=== PATIENT | female | born 1965 | race Caucasian/White ===

== ENCOUNTER → 2017-05-29 | Outpatient (CLI) | payer MEDICAID ==
[2013-12-12 17:22] VITALS: BMI 30.4
[~2017-05-29] MED LIST: ABILIF5PT PO; ACE3 PO; ACET-1718 PO; ACET-1966 PO; ACET-3017 PO; ACETAMINOPHEN PO; ALB0.5 IH; ALB18R IH; ALB18R INH; ALBU2.5V36 IH; ALBU8.5H IH; ALL300 PO; ALP5; ALPR-429 PO; ALPR-434 PO; ALPR-460 PO; AMIT-108 PO; ASPI-1403 PO; ASPI-715 PO; AZIT-1 PO; AZIT500T47 PO; BACL-1 PO; BLOO-1318 MC; BUDE10.25 IH; BUPR-127 PO; BUSP10TA95; BUSP30TA18 PO; BUSP7.5T7 PO; CAR6.25 PO; CARI-327 PO; CARV12.578 PO; CARV25TA77 PO; CARV25TA78 PO; CELE100C79 PO; CEPH500C24 PO; CLAR-13 PO; CLO5 PO; CLO75 PO; CLON-1 PO; CLOP75TA PO; CLOP75TA43 PO; CLOT15CR62 TP; CODE118S5 PO; CYAN20004 PO; CYC10 PO; CYCL-277 PO; CYCL10TA29 PO; DEXILENT; DEXLAN60PT PO; DIA5 PO; DIAZ-308 PO; DICY-42 PO; DICY10CA11 PO; DIPHENHYDRAMINE PO; DOXY-179 PO; DOXY-181 PO; DULO60CA56 PO; ESCI10TA8 PO; ESCI20TA38 PO; EZE10 PO; FERR325T24 PO; FLU45SYR17 IM; FLUC100T39 PO; FLUC150T40 PO; FLUT1DIS28 IH; FLUT9.9S; FURO-45 PO; FURO-47 PO; GABA-490 PO; GLUC-232 PO; HYDR-317; HYDR-319; HYDR-385 PO; HYDR-389 PO; HYDR-393 PO; HYDR-4225 PO; HYDR-4308 PO; HYDR-4309 PO; HYDR25CA13 PO; HYDR2TAB4 PO; HYDR2TAB74 PO; HYDR50CA47 PO; HYDR50CA48 PO; HYOS0.128 PO; IBU800 PO; IPRA3AMP21 IH; ISOS30TA51 PO; ISOS30TA54 PO; ISOS30TA71 PO; KET10 PO; LANC-1149 MC; LANS30CA70 PO; LID5T TP; LIDO10VI16 INTRA-ART; LIDO700A29 TD; LOR05 PO; LOR5 PO; LOR5/325 PO; LORA-1455 PO; LORA-630 PO; LOSA100T67 PO; LOSA25TA50 PO; LOSA50TA68 PO; LOSA50TA72 PO; LOSARTIN PO; MELO-149 PO; METH-542 PO; METH4TAB66 PO; METR-1 PO; MOXI400T28 PO; MULT-768 PO; MULT-885 PO; MULT1CAP59 PO; NAPR500T75 PO; NIT100 PO; NIT3 PO; NITR0.4T3 SL; NYST100040 PO; NYST15PO4 TP; OMEP-137 PO; ONDA4TAB PO; ONDA8TAB98 PO; ORP100 PO; OXYC-823 PO; OXYC-857 PO; OXYC-865 PO; PARO-242 PO; PARO-243 PO; PARO30TA71 PO; PER PO; PHEN240S3 PO; PIO15 PO; PRA20 PO; PRED-1 PO; PRED1TAB17 PO; PRED20TA6 PO; PROAIRPT; PROM-110 PO; QUET25TA30 PO; QUET25TA31; QUET50TA PO; QUET50TA21 PO; ROSU5TAB8 PO; SCOT TD; SERT25TA87 PO; SPIR25TA76 PO; SPIR25TA78 PO; SULF-198 PO; TRA50 PO; TRAM-420 PO; TRAM-627 PO; TRAZ-156 PO; TRAZ-163 PO; TRAZ150T8 PO; TRAZ300T17 PO; TRI40I IART; TRILEPTAL; Tylenol Arthritis PO; [UNRECOGNIZED DRUG - CODE] MC; [UNRECOGNIZED DRUG - CODE] PO; [UNRECOGNIZED DRUG - CODE] PO; [UNRECOGNIZED DRUG - CODE] TP
[2017-05-29 09:42] LABS: LDL CHOLESTEROL 146 mg/dl
== END ==
LOC: LAB 08:20
PROVIDERS: ATTEND Nurse Practitioner Pediatrics
DX: F41.1 Generalized anxiety disorder (principal)
CPT/HCPCS: 36415; 82040; 82247; 82248; 82306; 82310; 82374; 82435; 82465; 82565; 82947; 83036; 83718; 84075; 84132; 84146; 84155; 84295; 84450; 84460; 84478; 84520; 85027

== ENCOUNTER 2017-06-25 18:10 | Emergency (ER) | payer MEDICAID ==
[2013-12-12 17:22] VITALS: Wt 89.4 kg
--- NOTE | 2017-06-25 18:16 | ER Report ---
History and Physical Time Seen By MD: 18:17 HPI/ROS CHIEF COMPLAINT: shakiness and near syncope HISTORY OF PRESENT ILLNESS: This is a 51 year old female. She is having some shakiness and dizziness today. Worsens when she sits or stands. Feeling like she might pass out several times today. Not eating much today. Not much fluid; only drank 40 ounces of Pepsi. Has been told she is anemic in the past. Has stomach pains when taking medications. Has a history of stomach ulcer after gastric bypass in the past. Had some black emesis a few days ago. No dark black stools or blood, but stools are loose. Normal urination. No fever or chills. Denies vision changes. Denies headache. No focal weakness or numbness in extremities or face. No recent illness. Allergies: Coded Allergies: bupropion (Verified Allergy, Intermediate, ANXIETY, 06/25/17) duloxetine (Verified Allergy, Intermediate, suicidal ideation, 06/25/17) lisinopril (Verified Allergy, Intermediate, COUGH, 06/25/17) miconazole (Verified Allergy, Mild, RASH, 06/25/17) RICHARD Inhibitors (Verified Allergy, Unknown, 06/25/17) ibuprofen (Verified Adverse Reaction, Intermediate, GI BLEED, 06/25/17) [id number] Reductase Inhibitor (Verified Adverse Reaction, Mild, JOINT PAIN, 06/25/17) Home Meds Active Scripts Albuterol Sulfate (VENTOLIN HFA) 18 Gm Inh, 2 PUFF INH Q4-6H Y for WHEEZING, #1 INH 1 Refill Prov:JON ONTIVEROS DO 02/21/17 Clopidogrel Bisulfate (CLOPIDOGREL) 75 Mg Tablet, 1 TAB PO QDAY, #30 TAB 11 Refills TAKE ONE TABLET BY MOUTH EVERY DAY Prov:JASMEET BRANCH APRN [employer] ADMINISTRATOR-C 09/10/15 Reported Medications Docusate Sodium (COLACE) 100 Mg Capsule, 100 MG PO, CAPSULE 06/25/17 Fluticasone/Salmeterol (ADVAIR HFA 115-21 MCG INHALER) 12 Gm Hfa.aer.ad, 12 GM IH 06/25/17 Ferrous Sulfate (IRON) 325 Mg Tablet, 325 MG PO DAILY 06/25/17 Sertraline Hcl (SERTRALINE HCL) 50 Mg Tablet, 1 TAB PO QDAY, TAB 06/25/17 Aripiprazole (ABILIFY) 10 Mg Tablet, 10 MG PO QDAY, TAB 06/25/17 Sertraline Hcl (SERTRALINE HCL) 100 Mg Tablet, 1 TAB PO QDAY, TAB 06/25/17 Clonazepam (CLONAZEPAM) 1 Mg Tablet, 0.5 MG PO BID Y for ANXIETY/AGITATION, #6 TAB 06/25/17 Aripiprazole (ABILIFY) 5 Mg Tablet, 2.5 MG PO QDAY, #10 TAB 06/25/17 Quetiapine Fumarate (SEROQUEL) 100 Mg Tablet, 100 MG PO QHS 06/25/17 Simvastatin (ZOCOR) 10 Mg Tablet, 10 MG PO HS, TAB 06/25/17 Clonazepam (KLONOPIN) 1 Mg Tablet, 1 MG PO BID, #7 TAB 09/08/16 Aspirin (Aspirin) 81 Mg Tablet.dr, 81 MG PO HS, 0 Refills 05/02/11 Discontinued Reported Medications Aripiprazole (ABILIFY) 5 Mg Tablet, PO QDAY, #10 TAB 09/08/16 Sertraline Hcl (ZOLOFT) 25 Mg Tablet, 1 TAB PO QDAY, TAB 09/08/16 Carvedilol (CARVEDILOL) 6.25 Mg Tab, 6.25 MG PO BID, TAB 07/12/16 Discontinued Scripts Promethazine HCl/Codeine (Promethazine-Codeine Syrup) 6.25 Mg-10 Mg/5 Ml Syrup, 5 ML PO Q6-8H Y for COUGH, #90 ML Prov:JON ONTIVEROS V DO 02/21/17 Prednisone (PREDNISONE) 20 Mg Tablet, 20 MG PO BID, #8 TAB Prov:JON ONTIVEROS V DO 02/21/17 Azithromycin (ZITHROMAX) 250 Mg Tablet, 1 TAB PO QDAY, #4 TAB Start tomorrow evening Prov:JON ONTIVEROS V DO 02/21/17 Reviewed Nurses Notes: Yes Hx Smoking: Yes Smoking Status: Current: Every Day Smoker, Heavy Tobacco Smoker Exposure to Second Hand Smoke?: Yes Hx Substance Use Disorder: Yes (prescription meds) Hx Alcohol Use: No Constitutional Vital Sign - Last 24 Hours 06/25/17 06/25/17 06/25/17 06/25/17 18:15 18:30 18:45 18:47 Temp 96.2 Pulse 102 90 90 Resp 16 B/P (MAP) 139/84 134/80 (98) 132/82 (99) Pulse Ox 95 94 94 O2 Delivery Room Air 06/25/17 06/25/17 06/25/17 06/25/17 18:48 18:49 18:51 19:00 Pulse 88 93 97 83 B/P (MAP) 132/82 (99) 128/93 (105) 128/88 (101) 129/80 (96) Pulse Ox 94 06/25/17 06/25/17 06/25/17 06/25/17 19:15 19:30 19:45 20:00 Pulse 80 78 79 80 B/P (MAP) 120/67 (84) 129/92 (104) Pulse Ox 95 94 94 94 06/25/17 20:14 Pulse 85 Resp 16 B/P (MAP) 118/72 (87) Pulse Ox 92 O2 Delivery Room Air Physical Exam General Appearance: The patient is alert. No acute distress. Eyes: Pupils are equal, round. No pallor, injection or icterus. ENT: Mucous membranes are moist. Normal oral mucosa. Posterior oropharynx is normal. Neck: Supple and non tender. Respiratory: Lungs are clear to auscultation. There are no retractions or accessory muscle use. Cardiovascular: Regular rate and rhythm. No murmurs, gallops or rubs. Normal capillary refill. No edema. Gastrointestinal: Abdomen is soft and non tender. Nondistended. No rebound or guarding. No masses or organomegaly. Normal active bowel sounds. No costovertebral angle tenderness with percussion. Rectal exam: brown stool. minimal pain/discomfort. normal tone. no masses. Neurological: Alert and oriented x3. No focal neurologic deficits. Dizziness with sitting up. Skin: Warm and dry. Musculoskeletal: Extremities are nontender. Full range of motion. No tenderness in palpation of the cervical, thoracic and lumbar spine. DIFFERENTIAL DIAGNOSIS: After history and physical exam, differential diagnosis was considered for dizziness and near syncope including but not limited to vasovagal, anemia or metabolic disturbance, arrhythmia, dehydration, and blood loss. Medical Decision Making Data Points Result Diagram: 06/25/17 1856 06/25/17 1856 Laboratory Hematology Test 06/25/17 00:00 06/25/17 18:42 06/25/17 18:56 Urine Color Straw Urine Clarity Clear Urine pH 5.0 pH (4.8-9.5) Urine Specific [place] 1.003 Urine Protein Negative mg/dL (NEGATIVE) Urine Glucose (UA) Negative mg/dL (NEGATIVE) Urine Ketones Negative mg/dL (NEGATIVE) Urine Blood Negative (NEGATIVE) Urine Nitrite Negative (NEGATIVE) Urine Bilirubin Negative (NEGATIVE) Urine Urobilinogen Negative mg/dL (0.2-1.9) Urine Leukocyte Esterase Trace (NEGATIVE) Urine RBC 1 /HPF (0-2/HPF) Urine WBC 2 /HPF (0-5/HPF) Urine Squamous Epithelial Cells Many /LPF (</=FEW) Urine Bacteria Few /HPF (NONE-FEW) Urine Mucus None /HPF (NONE-FEW) Stool Occult Blood (IFOB) Negative (NEGATIVE) Red Blood Count 5.02 M/uL (4.17-5.56) Mean Corpuscular Volume 76.0 fL (80.0-96.0) Mean Corpuscular Hemoglobin 24.4 pg (26.0-33.0) Mean Corpuscular Hemoglobin Concent 32.1 g/dL (32.0-36.0) Red Cell Distribution Width 17.4 % (11.5-14.5) Mean Platelet Volume 8.4 fL (7.2-11.1) Neutrophils (%) (Auto) 70.5 % (39.4-72.5) Lymphocytes (%) (Auto) 20.2 % (17.6-49.6) Monocytes (%) (Auto) 7.2 % (4.1-12.4) Eosinophils (%) (Auto) 1.6 % (0.4-6.7) Basophils (%) (Auto) 0.5 % (0.3-1.4) Nucleated RBC Relative Count (auto) 0.0 /100WBC Neutrophils # (Auto) 6.5 K/uL (2.0-7.4) Lymphocytes # (Auto) 1.9 K/uL (1.3-3.6) Monocytes # (Auto) 0.7 K/uL (0.3-1.0) Eosinophils # (Auto) 0.1 K/uL (0.0-0.5) Basophils # (Auto) 0.0 K/uL (0.0-0.1) Nucleated RBC Absolute Count (auto) 0.00 K/uL Prothrombin Time 12.6 seconds (12.0-14.4) Prothromb Time International Ratio 0.95 Activated Partial Thromboplast Time 26 seconds (23-35) Sodium Level 136 mmol/L (137-145) Potassium Level 3.8 mmol/L (3.5-5.0) Chloride Level 102 mmol/L (98-107) Carbon Dioxide Level 23 mmol/L (22-31) Blood Urea Nitrogen 9 mg/dl (7-18) Creatinine 0.90 mg/dl (0.52-1.04) Glomerular Filtration Rate Calc > 60.0 Random Glucose 136 mg/dl (75-110) Calcium Level 9.1 mg/dl (8.4-10.2) Total Bilirubin 0.4 mg/dl (0.2-1.3) Aspartate Amino Transf (AST/SGOT) 21 U/L (0-35) Alanine Aminotransferase (ALT/SGPT) 33 U/L (0-56) Alkaline Phosphatase 113 U/L (0-126) Total Protein 7.2 gm/dl (6.3-8.2) Albumin 3.9 g/dl (3.5-5.0) Chemistry Test 06/25/17 00:00 06/25/17 18:42 06/25/17 18:56 Urine Color Straw Urine Clarity Clear Urine pH 5.0 pH (4.8-9.5) Urine Specific [place] 1.003 Urine Protein Negative mg/dL (NEGATIVE) Urine Glucose (UA) Negative mg/dL (NEGATIVE) Urine Ketones Negative mg/dL (NEGATIVE) Urine Blood Negative (NEGATIVE) Urine Nitrite Negative (NEGATIVE) Urine Bilirubin Negative (NEGATIVE) Urine Urobilinogen Negative mg/dL (0.2-1.9) Urine Leukocyte Esterase Trace (NEGATIVE) Urine RBC 1 /HPF (0-2/HPF) Urine WBC 2 /HPF (0-5/HPF) Urine Squamous Epithelial Cells Many /LPF (</=FEW) Urine Bacteria Few /HPF (NONE-FEW) Urine Mucus None /HPF (NONE-FEW) Stool Occult Blood (IFOB) Negative (NEGATIVE) White Blood Count 9.3 k/uL (4.5-11.0) Red Blood Count 5.02 M/uL (4.17-5.56) Hemoglobin 12.2 g/dL (12.0-16.0) Hematocrit 38.1 % (34.0-47.0) Mean Corpuscular Volume 76.0 fL (80.0-96.0) Mean Corpuscular Hemoglobin 24.4 pg (26.0-33.0) Mean Corpuscular Hemoglobin Concent 32.1 g/dL (32.0-36.0) Red Cell Distribution Width 17.4 % (11.5-14.5) Platelet Count 193 K/uL (150-450) Mean Platelet Volume 8.4 fL (7.2-11.1) Neutrophils (%) (Auto) 70.5 % (39.4-72.5) Lymphocytes (%) (Auto) 20.2 % (17.6-49.6) Monocytes (%) (Auto) 7.2 % (4.1-12.4) Eosinophils (%) (Auto) 1.6 % (0.4-6.7) Basophils (%) (Auto) 0.5 % (0.3-1.4) Nucleated RBC Relative Count (auto) 0.0 /100WBC Neutrophils # (Auto) 6.5 K/uL (2.0-7.4) Lymphocytes # (Auto) 1.9 K/uL (1.3-3.6) Monocytes # (Auto) 0.7 K/uL (0.3-1.0) Eosinophils # (Auto) 0.1 K/uL (0.0-0.5) Basophils # (Auto) 0.0 K/uL (0.0-0.1) Nucleated RBC Absolute Count (auto) 0.00 K/uL Prothrombin Time 12.6 seconds (12.0-14.4) Prothromb Time International Ratio 0.95 Activated Partial Thromboplast Time 26 seconds (23-35) Glomerular Filtration Rate Calc > 60.0 Calcium Level 9.1 mg/dl (8.4-10.2) Total Bilirubin 0.4 mg/dl (0.2-1.3) Aspartate Amino Transf (AST/SGOT) 21 U/L (0-35) Alanine Aminotransferase (ALT/SGPT) 33 U/L (0-56) Alkaline Phosphatase 113 U/L (0-126) Total Protein 7.2 gm/dl (6.3-8.2) Albumin 3.9 g/dl (3.5-5.0) Coagulation Test 06/25/17 18:56 Prothrombin Time 12.6 seconds Prothromb Time International Ratio 0.95 Activated Partial Thromboplast Time 26 seconds Urinalysis Test 06/25/17 00:00 Urine Color Straw Urine Clarity Clear Urine pH 5.0 pH (4.8-9.5) Urine Specific [place] 1.003 Urine Protein Negative mg/dL (NEGATIVE) Urine Glucose (UA) Negative mg/dL (NEGATIVE) Urine Ketones Negative mg/dL (NEGATIVE) Urine Blood Negative (NEGATIVE) Urine Nitrite Negative (NEGATIVE) Urine Bilirubin Negative (NEGATIVE) Urine Urobilinogen Negative mg/dL (0.2-1.9) Urine Leukocyte Esterase Trace (NEGATIVE) Urine RBC 1 /HPF (0-2/HPF) Urine WBC 2 /HPF (0-5/HPF) Urine Squamous Epithelial Cells Many /LPF (</=FEW) Urine Bacteria Few /HPF (NONE-FEW) Urine Mucus None /HPF (NONE-FEW) EKG/Imaging EKG Interpretation 12 lead EKG: Rhythm: normal sinus rhythm, rate 90 [place]: normal QRS: Q waves in inferior leads suggesting old inferior infarct ST segments: No ST elevation or depression noted, nonspecific flattening of the T waves ED Course/Re-evaluation Clinical Indication for ER IV: Hydration, IV Access ED Course Orthostatic vitals ordered after initial evaluation: Mild decrease in blood pressure and increase in pulse with sitting and standing, but does not decrease/ increase 10 points. Patient felt much better after a liter of normal saline. She had a slightly low sodium of 136 and a glucose of 136. Normal coags and CBC. Stool occult blood negative. Urinalysis negative. Reviewed these with the patient. Talked about increasing fluid intake, not Pepsi. Decision to Disposition Date: Jun 25, 2017 Decision to Disposition Time: 20:10 Depart Departure Latest Vital Signs Vital Signs Date Time Temp Pulse Resp B/P (MAP) Pulse Ox O2 Delivery O2 Flow Rate FiO2 06/25/17 20:14 85 16 118/72 (87) 92 Room Air 06/25/17 18:15 96.2 Impression: Primary Impression: Dizziness Condition: Improved Disposition: HOME OR SELF-CARE Referrals: FRANCIE SAMPSON MD (PCP) Patient Instructions: Dehydration (ED) Additional Instructions: No problems noted on labs today. You felt better after the fluids and we recommend increasing fluid intake. Especially drinking 2-3 glasses of water a day instead of just Pepsi. Follow-up with your regular doctor for re-evaluation. SAMARIA DANG MD Jun 25, 2017 18:16
[2017-06-25] MEDS ORDERED: NS(*) 0.9% 1000 ML BAG 1,000 ML IV ONE (18:40)
[2017-06-25 19:06] LABS: PLATELET COUNT, AUTOMATED 193 K/uL (150-450)
[2017-06-25 19:16] LABS: INR 0.95
[2017-06-25] MEDS ORDERED: QUET100T29 PO (19:36)
[2017-06-25] MEDS ORDERED: SERT-184 PO (19:36)
[2017-06-25] MEDS ORDERED: ARIP10TA4 PO (19:36)
[2017-06-25] MEDS ORDERED: SIMV10TA96 PO (19:36)
[2017-06-25] MEDS ORDERED: DOCU-416 PO (19:36)
[2017-06-25] MEDS ORDERED: FLUT12HF2 IH (19:36)
[2017-06-25] MEDS ORDERED: CLON-303 PO (19:36)
[2017-06-25] MEDS ORDERED: SERT-181 PO (19:36)
[2017-06-25] MEDS ORDERED: FERR325T24 PO (19:36)
[2017-06-25] MEDS ORDERED: ABILIF5PT PO (19:36)
--- NOTE | 2017-06-25 19:42 | RADIOLOGY IMAGING REPORT ---
FAC[place] [facility] [place]IENT NAME: Ashley Mcdonough : 1965 MR: [id number] V: [id number] EXAM DATE: ORDERING PHYSICIAN: SAMARIA DANG TECHNOLOGIST: Location: [facility] - [place] Patient: Ashley Mcdonough : 1965 Visit/Account:[id number] Date of Sevice: 06/25/2017 Examination: CHEST SINGLE AP Comparison: 02/21/2017 and earlier. History: Near syncope. Findings: Cardiac and hilar contour is mildly enlarged but unchanged. Sternotomy and coronary artery bypass. AICD is unchanged. Mild chronic interstitial thickening. No new or enlarging consolidation, nodule, or evidence of acute peribronchial inflammation. No pneumothorax, edema, or effusion. No acute osseous abnormality. IMPRESSION: Unchanged chest with no evidence of acute cardiopulmonary disease. Report Dictated By: Guille Desai MD at 06/25/2017 7:36 PM Report E-Signed By: Guille Desai MD at 06/25/2017 7:38 PM [id number]
[2017-06-25 20:14] VITALS: BP 118/72
--- NOTE | 2017-06-25 20:46 | EKG ---
FACILITY: [facility] - [place] PATIENT NAME: VICKIE MEDEIROS : [id number] MR: [id number] V: [id number] EXAM DATE: ORDERING PHYSICIAN: SAMARIA DANG TECHNOLOGIST: BRICE Test Reason : NEAR SYNCOPE Blood Pressure : / mmHG Vent. Rate : 090 BPM Atrial Rate : 090 BPM P-R Int : 194 ms QRS Dur : 092 ms QT Int : 386 ms P-R-T Axes : 071 016 094 degrees QTc Int : 472 ms Normal sinus rhythm Inferior-posterior infarct , age undetermined Abnormal ECG When compared with ECG of 21-FEB-2017 15:44, Inferior-posterior infarct is now present ST elevation now present in Inferior leads Nonspecific T wave abnormality no longer evident in Inferior leads Confirmed by MILANA DIAZ ([id number]) on 06/26/2017 5:35:20 AM Referred By: Confirmed By:MILANA DIAZ
== END 2017-06-25 20:18 | disposition home or self-care (01) ==
LOC: ER 18:19
DX: R42 Dizziness and giddiness (principal)
CPT/HCPCS: 71045; 81001; 82274; 85025; 85610; 85730; 93005; 99284; J7030; 82040; 82247; 82310; 82374; 82435; 82565; 82947; 84075; 84132; 84155; 84295; 84450; 84460; 84520

== ENCOUNTER 2017-07-12 14:16 | Outpatient (RCR) | payer MEDICAID ==
[2013-12-12 17:22] VITALS: Ht 170.2 cm; Wt 95.7 kg
[~2017-07-12] VITALS: Ht 170.2 cm; Wt 95.7 kg
[~2017-07-12 14:16] MED LIST changes: +ARIP10TA4 PO; +CLON-303 PO; +DOCU-416 PO; +FLUT12HF2 IH; +QUET100T29 PO; +SERT-181 PO; +SERT-184 PO; +SIMV10TA96 PO
--- NOTE | 2017-07-14 08:42 | Medical Nutrition Therapy ---
Nutrition Anthropometrics Height (Inches): 67 Weight (Pounds): 211 (stated) BMI Calculated: 30.38 Jah Nutrition Score: Jah Nutrition Risk Score: Dietary Referral Nutrition Risk Factors: Nutrition Risk Comment: Nutrition/Food History No Significant Nutr. HX Good Alcohol Use: Never Exercise: No Breakfast: 11:00 egg, sausage, 2 grand biscuits, reg pepsi Dinner: Bagel, cream cheese or ham and cheese, reg pepsi Snacks: reg pepsi ~ 100 oz total/day Nutritional Education Nutrition Education Topic: Diabetic Nutrition Learning Readiness: Interested Teaching Methods: Discussion, Handout, Demonstration Response to Teaching: Verbalize understanding Teaching Recipient: Patient Nutrition Counseling: Pt has DM for several years, has never recieved classes. Pt had gastic bypass surgery and diabetes "went away". Pt drinks 100 oz regular pepsi/day. Pt recognizes that her soda intake is playing major role in elevated BG. Pt is consuming 1250 kcal 350gm CHO in drink. Discussed with pt if she can cut out or cut back in soda. Discussed altrernative beverages. Right now pt does not think she can cut it out but is willing to cut back to 50 oz/day. Recommend trying that and then slowly weaning from regular soda. Discussed glycemic reponse of simple sugar beverages. Reviewed typical day which is high CHO foods and low in veg, meat. Encouraged increased veg and protein. Reviewed plate method and Carb counting. Provided meal plan of 30-45gm CHO/meal or 1c CHO using plate method. Pt made behavioural goal of wt loss with decreased CHO and exercise. Pt scheduled with diabetic classes. Nutrition Monitoring & Eval RD Patient Assessment Time: [address] Assessment Type: RD Education Nutritional Comment: Provided 60 minute diabetes education focusing on nutrition, behavioural goals, support plan. Copies To Copies to: FRANCIE SAMPSON MD, BETH Jul 13, 2017 15:55
--- NOTE | 2017-08-11 10:33 | Medical Nutrition Therapy ---
Nutritional Education Nutrition Education Topic: Diabetic Nutrition Learning Readiness: Interested Teaching Methods: Discussion, Handout Response to Teaching: Verbalize understanding Teaching Recipient: Patient Nutrition Counseling: Provided group diabetes education on nutrition. Reviewed: process of digestion; function of CHO, protein and fat; glycemic index; reading labels, portion sizes; heart healthy intake; eating out, alcohol. Nutrition Monitoring & Eval RD Patient Assessment Time: [address] Assessment Type: RD Education Nutritional Comment: Provided 60 minute diabetes education in a group setting focusing on nutrition. Copies To Copies to: FRANCIE SAMPSON MD, BETH Aug 11, 2017 10:31
--- NOTE | 2017-08-25 13:46 | Medical Nutrition Therapy ---
Nutritional Education Nutrition Education Topic: Diabetic Nutrition Learning Readiness: Interested Teaching Methods: Discussion, Handout, Demonstration Response to Teaching: Verbalize understanding Teaching Recipient: Patient Nutrition Counseling: Provided group diabetes education on: sick day management, oral health, complication, A1C, eye care and retinopathy, nephropathy, neuropathy, foot care, exercise, heart healthy, hypo and hyperglycemia, infection, personal health habits, stress, depression and sexual healthy. Nutrition Monitoring & Eval RD Patient Assessment Time: [address] Assessment Type: RD Education Nutritional Comment: Provided 80 minute diabetes education in a group setting focusing on life skills. Copies To Copies to: FRANCIE SAMPSON MD, BETH August 25, 2017 13:46
== END 2017-08-25 ==
LOC: DIET 14:16 → EDSTATUS 14:16 → DIET 08-16 13:43
PROVIDERS: ATTEND Obstetrics & Gynecology
DX: Z71.3 Dietary counseling and surveillance (principal); E11.9 Type 2 diabetes mellitus without complications; Z98.0 Intestinal bypass and anastomosis status; Z68.30 Body mass index [BMI] 30.0-30.9, adult
CPT/HCPCS: G0108; G0109

== ENCOUNTER 2017-09-30 15:50 | Emergency (ER) | payer MEDICAID ==
[2013-12-12 17:22] VITALS: Wt 93.9 kg
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
[2017-09-30 16:39] LABS: PLATELET COUNT, AUTOMATED 220 K/uL (150-450)
[2017-09-30] MEDS ORDERED: METF-411 PO (17:15)
[2017-09-30] MEDS ORDERED: RANI-366 PO (17:15)
[2017-09-30 18:07] VITALS: BP 145/90
== END 2017-09-30 18:10 | disposition other institution (70) ==
LOC: ER 16:19
DX: F32.9 Major depressive disorder, single episode, unspecified (principal); R45.851 Suicidal ideations; F17.210 Nicotine dependence, cigarettes, uncomplicated
CPT/HCPCS: 80305; 81001; 83735; 84443; 85025; 99283; G0480; 80320; 80329; 82040; 82247; 82310; 82374; 82435; 82565; 82947; 84075; 84132; 84155; 84295; 84450; 84460; 84520

== ENCOUNTER 2017-09-30 17:42 | Inpatient (IN) | payer MEDICAID ==
[2013-12-12 17:22] VITALS: Ht 162.6 cm; Wt 92.1 kg
[~2017-09-30] VITALS: Ht 162.6 cm; Wt 92.1 kg
[~2017-09-30 17:42] MED LIST changes: +METF-411 PO; +RANI-366 PO
[2017-09-30] MEDS ORDERED: ACETAMINOPHEN 325 MG TAB PO PRN (18:55)
[2017-09-30] MEDS ORDERED: MAG HYD/AL HYD/SIMETH 30ML UDC PO PRN (18:55)
[2017-09-30 19:21] VITALS: BP 120/78
[2017-09-30] MEDS ORDERED: ALBUTEROL SULFATE 90 MCG/ACT 8.5 GM HNH INH PRN (21:15)
[2017-09-30] MEDS ORDERED: clonazePAM 0.5 MG TAB PO PRN (21:20)
[2017-09-30] MEDS ORDERED: NICOTINE CARTRIDGE 1 EA PO PRN (21:20)
[2017-09-30] MEDS ORDERED: NICOTINE INH SYSTEM 10 MG/INH INH PRN (21:20)
[2017-09-30] MEDS ORDERED: RANITIDINE HCL 150 MG TAB PO PRN (21:25)
[2017-09-30] MEDS: clonazePAM 1 MG TAB PO SCH (21:38)
[2017-09-30] MEDS: metFORMIN HCL XR 500 MG TABCR PO SCH (22:58)
[2017-09-30] MEDS: QUEtiapine FUM 100 MG TAB PO SCH (22:58)
[2017-10-01 03:34] VITALS: BP 124/79
[2017-10-01] MEDS: SIMVASTATIN 20 MG TAB PO SCH (08:13)
[2017-10-01] MEDS: SERTRALINE HCL 50 MG TAB PO SCH (08:13)
[2017-10-01] MEDS: clonazePAM 1 MG TAB PO SCH ×2 (08:13→21:18)
[2017-10-01] MEDS: metFORMIN HCL XR 500 MG TABCR PO SCH ×2 (08:13→21:17)
[2017-10-01] MEDS: ARIPiprazole 10 MG TAB PO SCH (08:13)
[2017-10-01] MEDS: MULTIVITAMINS PO SCH (08:13)
[2017-10-01] MEDS: PATIENT'S OWN MED INH SCH ×2 (10:07→21:00)
[2017-10-01 13:00] VITALS: BP 112/70
[2017-10-01] MEDS ORDERED: LITHIUM CARBONATE 450 MG TABCR PO SCH (21:00)
[2017-10-01] MEDS: QUEtiapine FUM 100 MG TAB PO SCH (21:18)
[2017-10-01 21:30] VITALS: BP 112/76
[2017-10-02 05:25] VITALS: BP 115/72
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
[2017-10-02] MEDS: MULTIVITAMINS PO SCH (07:49)
[2017-10-02] MEDS: SERTRALINE HCL 50 MG TAB PO SCH (07:50)
[2017-10-02] MEDS: clonazePAM 1 MG TAB PO SCH (07:50)
[2017-10-02] MEDS: SIMVASTATIN 20 MG TAB PO SCH (07:50)
[2017-10-02] MEDS: PATIENT'S OWN MED INH SCH (07:51)
[2017-10-02] MEDS: ARIPiprazole 10 MG TAB PO SCH (07:51)
[2017-10-02] MEDS: metFORMIN HCL XR 500 MG TABCR PO SCH (07:51)
[2017-10-02] MEDS ORDERED: NIC10R INH (11:34)
[2017-10-02] MEDS ORDERED: LITC450 PO (11:34)
--- NOTE | 2017-10-02 11:48 | BHS Discharge Summary ---
[facility] Discharge Summary Loey-ns-Fdbc Encounter Date: Oct 02, 2017 Ozaz-as-Upml Encounter Time: 09:00 Reason-Hosp/Final Diag (DSM-V): (1) Recurrent major depression-severe Hospital Course & Plan: Pt was admitted to [facility] and maintained on suicide precautions. We reviewed her history of multiple medication trials over the years, and chose to initiate lithium augmentation at 450 mg q hs, keeping her outpatient meds unchanged (klonopin, abilify, seroquel, and zoloft). On morning of discharge she reported sleeping well, with much improved mood, rating depression at a 2/10. She tolerated the lithium well without GI side effects. She was educated that she will need bloodwork 2 or 3 times per year to monitor thyroid and kidney function, but that on low dose augmentation therapy side effects are unlikely. She participated actively in treatment, she denied suicidal ideation throughout her hospital stay, on the morning of discharge she was future-oriented, studying her medical terminology text book (for vocational rehab), and stable for discharge. She will follow up with therapist Jarred on Monday at 2 pm, and with Dr. Crowe on Monday. Physical Exam Latest Vital Signs Vital Signs 10/01/17 10/01/17 10/02/17 00:22 13:00 05:25 Temp 97.9 Pulse 91 Resp 16 B/P (MAP) 115/72 (86) Pulse Ox 96 O2 Delivery Room Air O2 Flow Rate 1.0 Mental Status Exam General Appearance: Casual, Well Groomed, Good Eye Contact, Cooperative, Polite , Good Interaction Speech: Clear, Spontaneous, Normal Rate, Normal Rhythm, Normal Volume, Normal Tone Mood: Euthymic Affect: Full and Appropriate, Calm Thought Process: Organized, Logical, Goal Directed Thought Content: No Suicidal Ideation, No Homicidal Ideation, No Delusions, No Auditory Halllucinations, No Visual Hallucinations, No Thought Broadcasting, No Ideas of Reference, No Obsessions, No Compulsions, No Other Sensorium: Clear Cognition: Alert & Oriented-Person, Alert & Oriented-Place, Alert & Oriented- Time, Ibnjc-Mdgxzweb-Ngxihdiej Memory: Immediate, Recent, Remote Intelligence: Average Insight Judgment: Good Departure Condition: Improved Discharge to: Home Discharge Instructions Home Meds Active Scripts Albuterol Sulfate (VENTOLIN HFA) 18 Gm Inh, 2 PUFF INH Q4-6H Y for WHEEZING, #1 INH 1 Refill Prov:JON ONTIVEROS DO 02/21/17 Clopidogrel Bisulfate (CLOPIDOGREL) 75 Mg Tablet, 1 TAB PO QDAY, #30 TAB 11 Refills TAKE ONE TABLET BY MOUTH EVERY DAY Prov:JOSE CARLOSJASMEET FRANCISCO WEAVER HAND-C 09/10/15 Reported Medications Nicotine (NICOTROL) 10 Mg/Inh Ctr, 10 MG INH PRN 10/02/17 [place] Carbonate (LITHIUM CARBONATE) 450 Mg Tabcr, 450 MG PO QHS, #30 0 Refills 10/02/17 Metformin Hcl (METFORMIN HCL) 500 Mg Tablet, 1 TAB PO BID, TAB 09/30/17 Ranitidine Hcl (ZANTAC) 150 Mg Tablet, 150 MG PO BID, TAB 09/30/17 Docusate Sodium (COLACE) 100 Mg Capsule, 100 MG PO, CAPSULE 06/25/17 Fluticasone/Salmeterol (ADVAIR HFA 115-21 MCG INHALER) 12 Gm Hfa.aer.ad, 12 GM IH 06/25/17 Ferrous Sulfate (IRON) 325 Mg Tablet, 325 MG PO DAILY 06/25/17 Sertraline Hcl (SERTRALINE HCL) 50 Mg Tablet, 1 TAB PO QDAY, TAB 06/25/17 Aripiprazole (ABILIFY) 10 Mg Tablet, 10 MG PO QDAY, TAB 06/25/17 Clonazepam (CLONAZEPAM) 1 Mg Tablet, 0.5 MG PO BID Y for ANXIETY/AGITATION, #6 TAB 06/25/17 Quetiapine Fumarate (SEROQUEL) 100 Mg Tablet, 100 MG PO QHS 06/25/17 Simvastatin (ZOCOR) 10 Mg Tablet, 10 MG PO HS, TAB 06/25/17 Clonazepam (KLONOPIN) 1 Mg Tablet, 1 MG PO BID, #7 TAB 09/08/16 Aspirin (Aspirin) 81 Mg Tablet.dr, 81 MG PO HS, 0 Refills 05/02/11 Discontinued Reported Medications Sertraline Hcl (SERTRALINE HCL) 100 Mg Tablet, 1 TAB PO QDAY, TAB 06/25/17 Aripiprazole (ABILIFY) 5 Mg Tablet, 2.5 MG PO QDAY, #10 TAB 06/25/17 Multpiple Antipsychotics Used: Yes Reason For >1 Antipsychotic: low dose seroquel for sleep in addition to abilify for mood stability. Hope to minimize need for two antipsychotics by initiating lithium augmentation, once that kicks in fully, can try pt without seroquel. Diet: Diabetic Activity: As Tolerated Special Instructions: Discharge today. Follow up with outpatient therapy and medication management. JENNIE BULLOCK MD Oct 02, 2017 11:47
[2017-10-02 14:18] VITALS: BP 126/78
== END 2017-10-02 16:57 | disposition home or self-care (01) | DRG 885 ==
LOC: BHS 17:42
PROVIDERS: ADMIT Psychiatry & Neurology Psychiatry; ATTEND Psychiatry & Neurology Psychiatry
DX: F33.2 Major depressive disorder, recurrent severe without psychotic features (principal); R45.851 Suicidal ideations; I25.2 Old myocardial infarction; Z95.5 Presence of coronary angioplasty implant and graft; Z95.1 Presence of aortocoronary bypass graft; Z98.84 Bariatric surgery status; J45.909 Unspecified asthma, uncomplicated; E11.9 Type 2 diabetes mellitus without complications; Z95.810 Presence of automatic (implantable) cardiac defibrillator; Z96.89 Presence of other specified functional implants; Z62.810 Personal history of physical and sexual abuse in childhood; E66.3 Overweight; F41.9 Anxiety disorder, unspecified; G47.00 Insomnia, unspecified; M17.0 Bilateral primary osteoarthritis of knee; M16.0 Bilateral primary osteoarthritis of hip; Z68.34 Body mass index [BMI] 34.0-34.9, adult
CPT/HCPCS: 80305; 80320; 80329; 81001; 81025; 82040; 82247; 82310; 82374; 82435; 82565; 82947; 83735; 84075; 84132; 84155; 84295; 84443; 84450; 84460; 84520; 85025; 99283

== ENCOUNTER → 2018-01-16 | Outpatient (CLI) | payer BC ==
[2013-12-12 17:22] VITALS: BMI 30.4
[~2018-01-16] MED LIST changes: -CLON-303 PO; +CLON-304 PO; +IPRA3AMP10 IH; -IPRA3AMP21 IH; +LITC450 PO; -LOSA100T67 PO; +LOSA100T69 PO; -LOSA25TA50 PO; +LOSA25TA52 PO; -LOSA50TA72 PO; +LOSA50TA74 PO; -METF-411 PO; +METF-450 PO; +NIC10R INH; +SPIR25TA80 PO; -TRAZ-156 PO; -TRAZ-163 PO; +TRAZ100T31 PO; +TRAZ50TA34 PO
--- NOTE | 2018-01-16 17:21 | RADIOLOGY IMAGING REPORT ---
FACILITY: [facility] [place] PATIENT NAME: Ashley Mcdonough : 1965 MR: [id number] V: [id number] EXAM DATE: ORDERING PHYSICIAN: KEVIN MORA TECHNOLOGIST: [place] [facility] [place]on[place] : 1965 Visit/Account:[id number] Date of Sevice: 01/16/2018 Study: Lumbar spine series Indication: Low back pain Comparison study: September 08, 2016 Findings: AP, lateral, and cone-down lateral views of the lumbar spine demonstrates no evidence of co mpression fracture. There is no evidence of spondylolisthesis. There is no evidence of lytic or blast ic lesions. There is marked narrowing of the L5-S1 disc space. This is unchanged There is mild degenerative disease present. IMPRESSION: Mild degenerative disease. Marked narrowing of the L5-S1 disc space without significant c hange from the previous study. Report Dictated By: Mat De Leon at 01/16/2018 5:15 PM Report E-Signed By: Mat De Leon at 01/16/2018 5:16 PM WSN:[id number]
== END ==
LOC: RAD 14:44
PROVIDERS: ATTEND Physician Assistant
DX: M51.36 Other intervertebral disc degeneration, lumbar region (principal); Z87.39 Personal history of other diseases of the musculoskeletal system and connective tissue; Z96.9 Presence of functional implant, unspecified
CPT/HCPCS: 72100

== ENCOUNTER 2018-10-27 17:55 | Emergency (ER) | payer BC ==
[2013-12-12 17:22] VITALS: Wt 94.8 kg
[~2018-10-27 17:55] MED LIST changes: -CLON-304 PO; +CLON-333 PO; -HYDR-4308 PO; -HYDR-4309 PO; +HYDR-653 PO; +HYDR-654 PO; -LOSA100T69 PO; +LOSA100T75 PO; -LOSA25TA52 PO; +LOSA25TA57 PO; -LOSA50TA74 PO; +LOSA50TA80 PO; -RANI-366 PO; +RANI-54 PO; -TRAZ50TA34 PO; +TRAZ50TA52 PO
--- NOTE | 2018-10-27 18:08 | ER Report ---
History and Physical Time Seen By MD: 18:06 Hx. of Stated Complaint: patient reports abdominal pain for the last 3 weeks. she saw her primary care provider and is being treated for an ulcer HPI/ROS CHIEF COMPLAINT: Abdominal pain HISTORY OF PRESENT ILLNESS: This is a 53 year old female. She has a history of abdominal pain, epigastric. Treated right now for stomach ulcer or gastritis. Waiting to see a GI specialist in [place] for evaluation. Having more consistent epigastric and periumbilical pain today, not coming and going like it was. Her doctor recommended further evaluation. Does not change with food, but eating seems to make it worse. No fevers or chills. No nausea or vomiting. She has history of gastric bypass surgery. No diarrhea. Normal urination. Only eating about once a day because of the pain. REVIEW OF SYSTEMS: Constitutional: No fever or chills. Eyes: No vision changes. ENT: No sore throat. No congestion. Cardiovascular: No chest pain. Respiratory: No shortness of breath. Gastrointestinal: No abdominal pain. No nausea or vomiting. Genitourinary: No dysuria. No frequency Musculoskeletal: No musculoskeletal pain. Skin: No rashes. Neurological: No numbness. No weakness. Allergies: Coded Allergies: bupropion (Verified Allergy, Intermediate, ANXIETY, 06/25/17) duloxetine (Verified Allergy, Intermediate, suicidal ideation, 06/25/17) lisinopril (Verified Allergy, Intermediate, COUGH, 06/25/17) miconazole (Verified Allergy, Mild, RASH, 06/25/17) RICHARD Inhibitors (Verified Allergy, Unknown, 06/25/17) ibuprofen (Verified Adverse Reaction, Intermediate, GI BLEED, 06/25/17) Ntteols-Scm-Gyp Reductase Inhibitor (Verified Adverse Reaction, Mild, JOINT PAIN, 06/25/17) Home Meds Active Scripts Dicyclomine Hcl (DICYCLOMINE HCL) 10 Mg Capsule, 10 MG PO QID PRN for SPASMS, #20 CAPSULE 0 Refills Prov:ASMARIA DANG MD 10/27/18 Albuterol Sulfate (VENTOLIN HFA) 18 Gm Inh, 2 PUFF INH Q4-6H PRN for WHEEZING, #1 INH 1 Refill Prov:JON ONTIVEROS DO 02/21/17 Clopidogrel Bisulfate (CLOPIDOGREL) 75 Mg Tablet, 1 TAB PO QDAY, #30 TAB 11 Refills TAKE ONE TABLET BY MOUTH EVERY DAY Prov:LINDAZarinaJASMEET [employer] DIRECTOR-C 09/10/15 Reported Medications Sucralfate (CARAFATE) 1 Gm Tablet, 1 GM PO TID 10/27/18 Nicotine (NICOTROL) 10 Mg/Inh Ctr, 10 MG INH PRN 10/02/17 [place] Carbonate (LITHIUM CARBONATE) 450 Mg Tabcr, 450 MG PO QHS, #30 0 Refills 10/02/17 Metformin Hcl (METFORMIN HCL) 500 Mg Tablet, 1 TAB PO BID, TAB 09/30/17 Ranitidine Hcl (ZANTAC) 150 Mg Tablet, 150 MG PO BID, TAB 09/30/17 Docusate Sodium (COLACE) 100 Mg Capsule, 100 MG PO, CAPSULE 06/25/17 Fluticasone/Salmeterol (ADVAIR HFA 115-21 MCG INHALER) 12 Gm Hfa.aer.ad, 12 GM IH 06/25/17 Ferrous Sulfate (IRON) 325 Mg Tablet, 325 MG PO DAILY 06/25/17 Sertraline Hcl (SERTRALINE HCL) 50 Mg Tablet, 1 TAB PO QDAY, TAB 06/25/17 Aripiprazole (ABILIFY) 10 Mg Tablet, 10 MG PO QDAY, TAB 06/25/17 Clonazepam (CLONAZEPAM) 1 Mg Tablet, 0.5 MG PO BID PRN for ANXIETY/AGITATION 06/25/17 Quetiapine Fumarate (SEROQUEL) 100 Mg Tablet, 100 MG PO QHS 06/25/17 Simvastatin (ZOCOR) 10 Mg Tablet, 10 MG PO HS, TAB 06/25/17 Clonazepam (KLONOPIN) 1 Mg Tablet, 1 MG PO BID 09/08/16 Aspirin (Aspirin) 81 Mg Tablet.dr, 81 MG PO HS 05/02/11 Reviewed Nurses Notes: Yes Hx Smoking: Yes Smoking Status: Current: Every Day Smoker Exposure to Second Hand Smoke?: Yes Hx Substance Use Disorder: Yes (prescription meds) Hx Alcohol Use: Yes Constitutional Vital Sign - Last 24 Hours 10/27/18 10/27/18 10/27/18 10/27/18 18:00 18:04 18:25 18:32 Temp 97.6 Pulse 85 79 Resp 20 B/P (MAP) 131/93 (106) 131/93 129/81 (97) Pulse Ox 95 93 O2 Delivery Room Air 10/27/18 10/27/18 10/27/18 10/27/18 18:37 19:07 19:30 19:37 Pulse 75 77 79 B/P (MAP) 120/68 (85) Pulse Ox 93 91 84 Physical Exam General Appearance: The patient is alert. No acute distress. Eyes: Pupils are equal, round. No pallor, injection or icterus. ENT: Mucous membranes are moist. Neck: Supple and non tender. Respiratory: Lungs are clear to auscultation. Cardiovascular: Regular rate and rhythm. No murmurs, gallops or rubs. Normal capillary refill. Gastrointestinal: Abdomin is soft, tender in epigastric and periumbilical area. Nondistended. Guarding, but no rebound. Normal active bowel sounds. No costovertebral angle tenderness with percussion. Neurological: Alert and oriented x3 No focal neurologic deficits Skin: Warm and dry. Musculoskeletal: Extremities are nontender. DIFFERENTIAL DIAGNOSIS: After history and physical exam, differential diagnosis was considered for epigastric pain including but not limited to biliary colic, cholecystitis, peptic ulcer disease, pancreatitis, and gastroenteritis. Medical Decision Making Data Points Result Diagram: 10/27/18 1812 10/27/18 1812 Laboratory Hematology Test 10/27/18 18:12 White Blood Count 7.8 k/uL (4.5-11.0) Red Blood Count 4.79 M/uL (4.17-5.56) Hemoglobin 12.4 g/dL (12.0-16.0) Hematocrit 38.3 % (34.0-47.0) Mean Corpuscular Volume 79.9 fL (80.0-96.0) L Mean Corpuscular Hemoglobin 25.9 pg (26.0-33.0) L Mean Corpuscular Hemoglobin Concent 32.4 g/dL (32.0-36.0) Red Cell Distribution Width 17.5 % (11.5-14.5) H Platelet Count 240 K/uL (150-450) Mean Platelet Volume 8.0 fL (7.2-11.1) Neutrophils (%) (Auto) 69.1 % (39.4-72.5) Lymphocytes (%) (Auto) 21.0 % (17.6-49.6) Monocytes (%) (Auto) 7.4 % (4.1-12.4) Eosinophils (%) (Auto) 1.4 % (0.4-6.7) Basophils (%) (Auto) 1.1 % (0.3-1.4) Nucleated RBC Relative Count (auto) 0.0 /100WBC Neutrophils # (Auto) 5.4 K/uL (2.0-7.4) Lymphocytes # (Auto) 1.6 K/uL (1.3-3.6) Monocytes # (Auto) 0.6 K/uL (0.3-1.0) Eosinophils # (Auto) 0.1 K/uL (0.0-0.5) Basophils # (Auto) 0.1 K/uL (0.0-0.1) Nucleated RBC Absolute Count (auto) 0.00 K/uL Chemistry Test 10/27/18 18:12 Sodium Level 138 mmol/L (137-145) Potassium Level 3.8 mmol/L (3.5-5.0) Chloride Level 104 mmol/L (98-107) Carbon Dioxide Level 22 mmol/L (22-31) Blood Urea Nitrogen 6 mg/dl (7-18) Creatinine 0.80 mg/dl (0.52-1.04) Glomerular Filtration Rate Calc > 60.0 Random Glucose 132 mg/dl (75-110) Calcium Level 9.5 mg/dl (8.4-10.2) Total Bilirubin 0.5 mg/dl (0.2-1.3) Aspartate Amino Transf (AST/SGOT) 27 U/L (0-35) Alanine Aminotransferase (ALT/SGPT) 27 U/L (0-56) Alkaline Phosphatase 125 U/L (0-126) Total Protein 7.6 g/dl (6.3-8.2) Albumin 4.4 g/dl (3.5-5.0) Amylase Level 60 U/L (0-110) Lipase 60 U/L (23-300) Serology Test 10/27/18 18:12 Helicobacter pylori IgG Antibody Negative (NEGATIVE) Urinalysis Test 10/27/18 17:58 Urine Color Straw Urine Clarity Slightly-cloudy Urine pH 5.0 pH (4.8-9.5) Urine Specific [place] 1.003 Urine Protein Negative mg/dL (NEGATIVE) Urine Glucose (UA) Negative mg/dL (NEGATIVE) Urine Ketones Negative mg/dL (NEGATIVE) Urine Blood Negative (NEGATIVE) Urine Nitrite Negative (NEGATIVE) Urine Bilirubin Negative (NEGATIVE) Urine Urobilinogen Negative mg/dL (0.2-1.9) Urine Leukocyte Esterase Negative (NEGATIVE) Urine RBC 2 /HPF (0-2/HPF) Urine WBC 2 /HPF (0-5/HPF) Urine Squamous Epithelial Cells Many /LPF (</=FEW) Urine Bacteria Few /HPF (NONE-FEW) Urine Mucus None /HPF (NONE-FEW) EKG/Imaging Imaging EXAMINATION: CT abdomen and pelvis with IV contrast HISTORY: Epigastric abdominal pain. TECHNIQUE: Axial CT images of the abdomen and pelvis were obtained with IV contrast, with coronal and sagittal 2D reconstructed images. One of the following dose optimization techniques was utilized in the performance of this exam: Automated exposure control; adjustment of the mA and/or kV according to the patient's size; or use of an iterative reconstruction technique. Specific details can be referenced in the facility's radiology CT exam operational policy. Contrast: 75 mL of IV Isovue-370. COMPARISON: 11/28/2012. FINDINGS: Liver: Fatty infiltration of the liver. Gallbladder and bile ducts: Cholecystectomy. No bile duct dilatation. Spleen: Negative. Pancreas: There are a few punctate parenchymal calcifications along the pancreatic head and neck which may relate to prior pancreatitis. No acute peripancreatic stranding. Adrenal glands: Negative. Kidneys: Negative. No hydronephrosis or urinary calculi. Bowel and peritoneum: Surgical changes of an antecolic Norbert-en-Y gastric bypass. There is some mild localized mesenteric stranding located anterior to the gastrojejunostomy, with a few mildly prominent adjacent mesenteric lymph nodes, measuring up to 9 mm. The small bowel and colon are normal in caliber. No bowel obstruction. Unremarkable CT appearance of the jejunojejunostomy. No free fluid or free intraperitoneal air. Small hiatal hernia. Normal appendix. Pelvic structures: Negative. Lymph node assessment: No other enlarged lymph nodes in the abdomen or pelvis. Vessels: Mild aortoiliac atherosclerosis, with a normal caliber abdominal aorta. Musculoskeletal: Scattered degenerative changes along the spine. No acute osseous findings. Spinal stimulator device present, entering the posterior spin al canal at the T9-T10 interspace and with lead at the level of T8 and T9. Body wall: Negative. Lung bases: Negative. IMPRESSION: 1. Surgical changes of an antecolic Norbert-en-Y gastric bypass. 2. There is new slight mesenteric stranding anterior to the gastrojejunostomy with a few mildly prominent adjacent lymph nodes. CT appearance is nonspecific but could relate to some localized inflammation near the gastrojejunostomy and/or marginal ulceration. Upper endoscopy could be performed for further evaluation as clinically indicated. 3. No other acute intra-abdominal findings. 4. Hepatic steatosis. 5. Cholecystectomy. 6. Normal appendix. Report Dictated By: Asad Ramos MD at 10/27/2018 7:20 PM ED Course/Re-evaluation Clinical Indication for ER IV: Hydration, IV Access ED Course IV fluids and Protonix given. Labs unremarkable. CT scan shows likley inflammation in small intestine near anastamosis of bypass. Given GI cocktail an d will try dicyclomine. Recommended continuing the carafate and restarting her prilosec. Follow-up with GI as planned this week. Decision to Disposition Date: Oct 27, 2018 Decision to Disposition Time: 19:50 Depart Departure Latest Vital Signs Vital Signs Date Time Temp Pulse Resp B/P (MAP) Pulse Ox O2 Delivery O2 Flow Rate FiO2 10/27/18 19:37 79 84 10/27/18 19:30 120/68 (85) 10/27/18 18:04 97.6 20 Room Air Impression: Primary Impression: Duodenitis Condition: Improved Disposition: HOME OR SELF-CARE Referrals: FRANCIE SAMPSON MD (PCP) New Scripts Dicyclomine Hcl (DICYCLOMINE HCL) 10 Mg Capsule 10 MG PO QID PRN for SPASMS, #20 CAPSULE 0 Refills Prov: SAMARIA DANG MD 10/27/18 Patient Instructions: Duodenitis (ED) Additional Instructions: Keep taking your Carafate 4 times a day. Add back Prilosec 20mg twice a day. Trial of Dicyclomine 10mg tablets, one every 6 hours as needed for bowel spasming. Follow-up with GI specialist this week as planned. Continued use of antacids as needed. Continue bland diet. SAMARIA DANG MD Oct 27, 2018 18:08
[2018-10-27] MEDS ORDERED: SUCR1TAB85 PO (18:19)
[2018-10-27] MEDS ORDERED: NS(*) 0.9% 1000 ML BAG 1,000 ML IV ONE (18:27)
[2018-10-27] MEDS ORDERED: PANTOPRAZOLE SOD 40 MG IV VIAL IVP ONE (18:30)
[2018-10-27] MEDS ORDERED: ONDANSETRON 4 MG/2 ML VIAL IVP ONE (18:30)
[2018-10-27 18:36] LABS: PLATELET COUNT, AUTOMATED 240 K/uL (150-450)
[2018-10-27] MEDS ORDERED: IOPAMIDOL 76% 100 ML INFUS BTL 100 ML ONE (18:42)
[2018-10-27 19:30] VITALS: BP 120/68
--- NOTE | 2018-10-27 19:43 | RADIOLOGY IMAGING REPORT ---
FACILITY: [facility] [place] PATIENT NAME: Ashley Mcdonough : 1965 MR: [id number] V: [id number] EXAM DATE: ORDERING PHYSICIAN: SAMARIA DANG TECHNOLOGIST: Location: [facility] [place] Patient: Ashley Mcdonough : 1965 Visit/Account:[id number] Date of Sevice: 10/27/2018 EXAMINATION: CT abdomen and pelvis with IV contrast HISTORY: Epigastric abdominal pain. TECHNIQUE: Axial CT images of the abdomen and pelvis were obtained with IV contrast, with coronal a nd sagittal 2D reconstructed images. One of the following dose optimization techniques was utilized in the performance of this exam: Autom ated exposure control; adjustment of the mA and/or kV according to the patient's size; or use of an i terative reconstruction technique. Specific details can be referenced in the facility's radiology C T exam operational policy. Contrast: 75 mL of IV Isovue-370. COMPARISON: 11/28/2012. FINDINGS: Liver: Fatty infiltration of the liver. Gallbladder and bile ducts: Cholecystectomy. No bile duct dilatation. Spleen: Negative. Pancreas: There are a few punctate parenchymal calcifications along the pancreatic head and neck whi ch may relate to prior pancreatitis. No acute peripancreatic stranding. Adrenal glands: Negative. Kidneys: Negative. No hydronephrosis or urinary calculi. Bowel and peritoneum: Surgical changes of an antecolic Norbert-en-Y gastric bypass. There is some mild localized mesenteric stranding located anterior to the gastrojejunostomy, with a few mildly prominent adjacent mesenteric lymph nodes, measuring up to 9 mm. The small bowel and colon are normal in caliber. No bowel obstruction. Unremarkable CT appearance of the jejunojejunostomy. No free fluid or free intraperitoneal air. Small hiatal hernia. Normal appendi x. Pelvic structures: Negative. Lymph node assessment: No other enlarged lymph nodes in the abdomen or pelvis. Vessels: Mild aortoiliac atherosclerosis, with a normal caliber abdominal aorta. Musculoskeletal: Scattered degenerative changes along the spine. No acute osseous findings. Spinal stimulator device present, entering the posterior spinal canal at the T9-T10 interspace and with lead at the level of T8 and T9. Body wall: Negative. Lung bases: Negative. IMPRESSION: 1. Surgical changes of an antecolic Norbert-en-Y gastric bypass. 2. There is new slight mesenteric stranding anterior to the gastrojejunostomy with a few mildly promi nent adjacent lymph nodes. CT appearance is nonspecific but could relate to some localized inflammati on near the gastrojejunostomy and/or marginal ulceration. Upper endoscopy could be performed for furt her evaluation as clinically indicated. 3. No other acute intra-abdominal findings. 4. Hepatic steatosis. 5. Cholecystectomy. 6. Normal appendix. Report Dictated By: Asad Ramos MD at 10/27/2018 7:20 PM Report E-Signed By: Asad Ramos MD at 10/27/2018 7:36 PM WSN:[id number]
[2018-10-27] MEDS ORDERED: MAG HYD/AL HYD/SIMETH 30ML UDC PO ONE (19:55)
[2018-10-27] MEDS ORDERED: ATRO/SCOPOL/HYOSCY/PB 5 ML ELX PO ONE (19:55)
[2018-10-27] MEDS ORDERED: LIDOCAINE 2% VISC SLN 15ML UDC PO ONE (19:55)
[2018-10-27] MEDS ORDERED: DICYCLOMINE HCL 10 MG CAP PO ONE (19:55)
[2018-10-27] MEDS ORDERED: DICY10CA11 PO (19:56)
== END 2018-10-27 20:18 | disposition home or self-care (01) ==
LOC: ER 18:08
DX: K29.80 Duodenitis without bleeding (principal)
CPT/HCPCS: 74177; 81001; 82150; 83690; 85025; 86677; 96361; 96374; 96375; 99284; C9113; J2405; J7030; Q9967; 82040; 82247; 82310; 82374; 82435; 82565; 82947; 84075; 84132; 84155; 84295; 84450; 84460; 84520